=== PATIENT | male | born 1945 | race Caucasian/White ===

== ENCOUNTER 2016-10-10 11:51 | Inpatient (IN) | payer OTHER ==
[~2016-10-10] VITALS: Ht 185.4 cm; Wt 108.4 kg
[2016-10-10 11:51] VITALS: BP_SYST 129
[2016-10-10] MEDS ORDERED: NACL 0.9% 1,000 ML IV SCH (12:02)
[2016-10-10 13:21] LABS: BASOPHILS # (AUTO) 0.1 K/uL (0.0-0.2); BASOPHILS % (AUTO) 0.7 % (0.0-2.0); EOSINOPHILS # (AUTO) 0.3 K/uL (0.0-0.4); EOSINOPHILS % (AUTO) 2.8 % (0.0-4.0); HEMATOCRIT 48.9 % (36-54); HEMOGLOBIN 15.9 g/dL (14.0-18.0); LYMPHOCYTES # (AUTO) 3.4 K/uL (1.0-5.5); LYMPHOCYTES % (AUTO) 29.3 % (20.5-51.5); MEAN CORPUSCULAR HEMOGLOBIN 29 pg (27-31); MEAN CORPUSCULAR HGB CONC 33 % (32-36); MEAN CORPUSCULAR VOLUME 88 fL (79.0-98.0); MONOCYTES # (AUTO) 1.3 K/uL (0.0-1.0); MONOCYTES % (AUTO) 11.3 % (1.7-9.3); NEUTROPHILS # (AUTO) 6.5 K/uL (1.8-7.7); NEUTROPHILS % (AUTO) 55.9 % (40.0-70.0); PLATELET COUNT (AUTO) 224 K/uL (130-430); RED BLOOD CELL COUNT(AUTO) 5.53 MIL/uL (4.2-6.2); RED CELL DISTRIBUTION WIDTH 12.8 % (9.0-15.0); WHITE BLOOD COUNT (AUTO) 11.6 K/uL (4.8-10.8)
[2016-10-10 13:23] LABS: CALCIUM 11.4 mg/dL (8.4-11.0); CREATININE 1.7 mg/dL (0.55-1.30)
[2016-10-10 13:28] LABS: POTASSIUM 2.5 mmol/L (3.5-5.1)
[2016-10-10 13:30] LABS: PROTHROMBIN TIME 10.7 SECS (9.5-12.5)
[2016-10-10 13:32] LABS: ALBUMIN 3.9 g/dL (3.4-4.8); TOTAL BILIRUBIN 0.5 mg/dL (0.0-1.0); TOTAL PROTEIN, SERUM 7.1 g/dL (6.4-8.3)
[2016-10-10] MEDS ORDERED: POTASSIUM CHLORIDE 20 MEQ TAB.PRT.SR PO ONE ×2 (13:45→17:00)
[2016-10-10] MEDS ORDERED: NACL 0.9% 1,000 ML IV ONE (14:00)
[2016-10-10] MEDS ORDERED: TRIA1CAP6 PO (14:16)
[2016-10-10] MEDS ORDERED: INSU100V9 SUBCUT (14:16)
[2016-10-10] MEDS ORDERED: TAMS-11 PO (14:16)
[2016-10-10] MEDS ORDERED: LISI2.5T48 PO (14:16)
[2016-10-10] MEDS ORDERED: LINA5TAB2 PO (14:16)
[2016-10-10] MEDS ORDERED: PRAV10TA PO (14:16)
[2016-10-10 15:06] LABS: BILIRUBIN,URINE NEGATIVE (NEGATIVE); BLOOD, URINE NEGATIVE (NEGATIVE); CLARITY/URINE HAZY (CLEAR); COLOR,URINE YELLOW (YELLOW); GLUCOSE,URINE NEGATIVE (NEGATIVE); KETONES,URINE NEGATIVE (NEGATIVE); LEUKOCYTE ESTERASE ,URINE NEGATIVE (NEGATIVE); NITRITE, URINE NEGATIVE (NEGATIVE); PH,URINE 5.5 (5.0-8.0); PROTEIN URINE 1+ (NEGATIVE); UROBILINOGEN,URINE 0.2 (0.2-1.0)
[2016-10-10 15:07] LABS: RBC,URINE 0-3 /HPF (0-3)
[2016-10-10 15:08] LABS: BACTERIA,URINE FEW /HPF (None Seen); FINE GRANULAR CASTS,URINE 0-10 /LPF (None Seen); MUCUS,URINE None Seen /LPF (None Seen); WBC,URINE 0-3 /HPF (0-3)
[2016-10-10] MEDS ORDERED: cefTRIAXone 1 GM IVPB PREMIX 50 ML IV ONE (15:15)
[2016-10-10 16:15] VITALS: BP_SYST 126
[2016-10-10] MEDS ORDERED: ACETAMINOPHEN 325 MG TABLET PO PRN (17:00)
[2016-10-10] MEDS ORDERED: DEXTROSE 50% JECT 50 ML DISP.SYRIN IVP PRN (17:00)
[2016-10-10] MEDS ORDERED: ZOLPIDEM TARTRATE 5 MG TABLET PO PRN (17:00)
[2016-10-10 17:24] VITALS: BP_SYST 125
[2016-10-10] MEDS: LR 1,000 ML IV SCH (18:40)
[2016-10-10] MEDS: INSULIN REGULAR, HUMAN 100 UNITS/ML, 10 ML VIAL (novoLIN R) SUBCUT PRN ×2 (18:43→21:40)
[2016-10-10 19:30] VITALS: BP_SYST 125
[2016-10-10] MEDS ORDERED: INSULIN GLARGINE 100 UNITS/ML 10 ML VIAL SUBCUT SCH (21:00)
[2016-10-10] MEDS: TAMSULOSIN HCL 0.4 MG CAP PO SCH (21:30)
[2016-10-10] MEDS ORDERED: ASPIRIN 81 MG TABLET(ECOTRIN) PO SCH (23:00)
[2016-10-10] MEDS: MAGNESIUM CHLORIDE 64 MG TABLET.DR PO SCH (23:15)
[2016-10-11 00:22] VITALS: BP_SYST 117
[2016-10-11 05:18] VITALS: BP_SYST 125
[2016-10-11] MEDS: LR 1,000 ML IV SCH ×3 (06:01→15:22)
[2016-10-11] MEDS: INSULIN REGULAR, HUMAN 100 UNITS/ML, 10 ML VIAL (novoLIN R) SUBCUT PRN ×3 (06:06→20:23)
[2016-10-11 06:51] LABS: BASOPHILS % (AUTO) 0.3 % (0.0-2.0); EOSINOPHILS # (AUTO) 0.1 K/uL (0.0-0.4); EOSINOPHILS % (AUTO) 0.6 % (0.0-4.0); HEMOGLOBIN 12.9 g/dL (14.0-18.0); LYMPHOCYTES # (AUTO) 0.8 K/uL (1.0-5.5); LYMPHOCYTES % (AUTO) 9.5 % (20.5-51.5); MEAN CORPUSCULAR HEMOGLOBIN 30 pg (27-31); MEAN CORPUSCULAR HGB CONC 34 % (32-36); MEAN CORPUSCULAR VOLUME 88 fL (79.0-98.0); MONOCYTES # (AUTO) 0.7 K/uL (0.0-1.0); MONOCYTES % (AUTO) 7.8 % (1.7-9.3); NEUTROPHILS # (AUTO) 6.8 K/uL (1.8-7.7); NEUTROPHILS % (AUTO) 81.8 % (40.0-70.0); PLATELET COUNT (AUTO) 132 K/uL (130-430); RED BLOOD CELL COUNT(AUTO) 4.31 MIL/uL (4.2-6.2); RED CELL DISTRIBUTION WIDTH 13.1 % (9.0-15.0); WHITE BLOOD COUNT (AUTO) 8.4 K/uL (4.8-10.8)
[2016-10-11 07:21] LABS: CALCIUM 9.1 mg/dL (8.4-11.0); CREATININE 1.35 mg/dL (0.55-1.30); POTASSIUM 4.6 mmol/L (3.5-5.1)
[2016-10-11 07:41] LABS: ALBUMIN 2.7 g/dL (3.4-4.8); TOTAL BILIRUBIN 0.2 mg/dL (0.0-1.0)
[2016-10-11 08:00] VITALS: BP_SYST 129
[2016-10-11] MEDS ORDERED: PRAVASTATIN SODIUM 10 MG TABLET (PRAVACHOL) PO SCH (09:00)
[2016-10-11] MEDS: POTASSIUM CHLORIDE 20 MEQ TAB.PRT.SR PO SCH ×3 (09:31→13:11)
[2016-10-11] MEDS: MAGNESIUM CHLORIDE 64 MG TABLET.DR PO SCH ×2 (09:32→20:33)
[2016-10-11] MEDS: LISINOPRIL 5 MG TABLET PO SCH (09:32)
[2016-10-11 12:35] VITALS: BP_SYST 138
[2016-10-11] MEDS ORDERED: MAGNESIUM SULFATE 1 GM in NS 100 ML IV ONE (14:15)
[2016-10-11 16:00] VITALS: BP_SYST 116
[2016-10-11] MEDS: TAMSULOSIN HCL 0.4 MG CAP PO SCH (20:25)
[2016-10-11 20:28] VITALS: BP_SYST 141
[2016-10-11] MEDS ORDERED: ASPIRIN 81 MG TABLET(ECOTRIN) PO SCH (21:00)
[2016-10-12 00:07] VITALS: BP_SYST 138
[2016-10-12 04:40] VITALS: BP_SYST 110
[2016-10-12 06:33] LABS: BASOPHILS % (AUTO) 0.8 % (0.0-2.0); EOSINOPHILS # (AUTO) 0.2 K/uL (0.0-0.4); EOSINOPHILS % (AUTO) 3.5 % (0.0-4.0); HEMATOCRIT 37.9 % (36-54); HEMOGLOBIN 13.1 g/dL (14.0-18.0); LYMPHOCYTES # (AUTO) 1.5 K/uL (1.0-5.5); LYMPHOCYTES % (AUTO) 24.6 % (20.5-51.5); MEAN CORPUSCULAR HEMOGLOBIN 30 pg (27-31); MEAN CORPUSCULAR HGB CONC 35 % (32-36); MEAN CORPUSCULAR VOLUME 88 fL (79.0-98.0); MONOCYTES # (AUTO) 0.6 K/uL (0.0-1.0); MONOCYTES % (AUTO) 9.4 % (1.7-9.3); NEUTROPHILS # (AUTO) 3.9 K/uL (1.8-7.7); NEUTROPHILS % (AUTO) 61.7 % (40.0-70.0); PLATELET COUNT (AUTO) 125 K/uL (130-430); RED BLOOD CELL COUNT(AUTO) 4.32 MIL/uL (4.2-6.2); RED CELL DISTRIBUTION WIDTH 12.7 % (9.0-15.0); WHITE BLOOD COUNT (AUTO) 6.2 K/uL (4.8-10.8)
[2016-10-12 06:56] LABS: CALCIUM 8.6 mg/dL (8.4-11.0); CREATININE 1.18 mg/dL (0.55-1.30); POTASSIUM 3.7 mmol/L (3.5-5.1)
[2016-10-12 07:23] LABS: ALBUMIN 2.7 g/dL (3.4-4.8); THYROID STIMULATING HORMONE 1.41 uIu/mL (0.36-3.74); TOTAL BILIRUBIN 0.3 mg/dL (0.0-1.0); TOTAL PROTEIN, SERUM 5.1 g/dL (6.4-8.3)
[2016-10-12 08:20] VITALS: BP_SYST 139
[2016-10-12] MEDS ORDERED: ATORVASTATIN 20 MG TABLET PO SCH (09:00)
[2016-10-12] MEDS: LR 1,000 ML IV SCH ×2 (09:00→11:43)
[2016-10-12] MEDS: LISINOPRIL 5 MG TABLET PO SCH (09:20)
[2016-10-12] MEDS: MAGNESIUM CHLORIDE 64 MG TABLET.DR PO SCH (09:20)
[2016-10-12] MEDS: POTASSIUM CHLORIDE 20 MEQ TAB.PRT.SR PO SCH (11:43)
[2016-10-12] MEDS: INSULIN REGULAR, HUMAN 100 UNITS/ML, 10 ML VIAL (novoLIN R) SUBCUT PRN (11:44)
[2016-10-12 12:10] VITALS: BP_SYST 141
[2016-10-12 14:29] VITALS: BP_SYST 141
== END 2016-10-12 14:54 | disposition home or self-care (01) | DRG 871 ==
LOC: SED 11:51 → STU 16:00
PROVIDERS: ADMIT Internal Medicine; ATTEND Internal Medicine
DX: R57.1 Hypovolemic shock (principal); N17.0 Acute kidney failure with tubular necrosis; N18.4 Chronic kidney disease, stage 4 (severe); T50.2X5A Adverse effect of carbonic-anhydrase inhibitors, benzothiadiazides and other diuretics, initial encounter; I25.10 Atherosclerotic heart disease of native coronary artery without angina pectoris; E78.5 Hyperlipidemia, unspecified; E86.0 Dehydration; I12.9 Hypertensive chronic kidney disease with stage 1 through stage 4 chronic kidney disease, or unspecified chronic kidney disease; E11.22 Type 2 diabetes mellitus with diabetic chronic kidney disease; E11.649 Type 2 diabetes mellitus with hypoglycemia without coma; I95.9 Hypotension, unspecified; E87.6 Hypokalemia; N40.0 Benign prostatic hyperplasia without lower urinary tract symptoms; E83.52 Hypercalcemia; E83.42 Hypomagnesemia; Y92.89 Other specified places as the place of occurrence of the external cause; Z95.5 Presence of coronary angioplasty implant and graft; Z79.4 Long term (current) use of insulin; Z80.1 Family history of malignant neoplasm of trachea, bronchus and lung
CPT/HCPCS: 36415; 71010; 80053; 80061; 81000-TC; 82962; 83036; 83605; 83735-TC; 83880; 84443-TC; 84484; 85025; 85610-TC; 85730-TC; 87040-TC; 87086; 93005; 93306; 96361; 96365; 99285; J0696; J1815; J3475; J7030; J7120